=== PATIENT | female | born 1985 | race African-American/Black ===

== ENCOUNTER 2017-02-27 10:18 | Emergency (ER) | payer SELFPAY ==
[~2017-02-27] VITALS: Ht 162.6 cm; Wt 80.0 kg
[2017-02-27] MEDS ORDERED: RELAFEN 50500 MG/TAB PO (10:30)
[2017-02-27] MEDS ORDERED: TRILEPTAL 300M300 MG PO ×3 (10:31→14:59)
[2017-02-27] MEDS ORDERED: IRON325 M2 PO (10:31)
[2017-02-27] MEDS ORDERED: ZYPREXA20 MG PO (10:31)
[2017-02-27] MEDS ORDERED: COLACE 100100 MG/CAP PO (10:32)
[2017-02-27] MEDS ORDERED: ZYPREXA ZYD10 MG/TAB PO ×2 (11:55→14:59)
[2017-02-27 12:40] VITALS: BP 120/73; PULSE 103; TEMP 98.5
== END 2017-02-27 12:42 | disposition home or self-care (01) ==
LOC: COL.ER 10:18
DX: F31.9 Bipolar disorder, unspecified (principal); Z76.0 Encounter for issue of repeat prescription

== ENCOUNTER 2017-07-10 17:25 | Emergency (ER) | payer SELFPAY ==
[~2017-07-10] VITALS: Ht 170.2 cm; Wt 68.2 kg
[~2017-07-10 17:25] MED LIST: COLACE 100100 MG/CAP PO; IRON325 M2 PO; RELAFEN 50500 MG/TAB PO; TRILEPTAL 300M300 MG PO; ZYPREXA ZYD10 MG/TAB PO; ZYPREXA20 MG PO
[2017-07-10 17:29] VITALS: TEMP 98
[2017-07-10 17:43] LABS: COLLECTION METHOD CLEAN CATCH
[2017-07-10 17:49] LABS: PH 7 (5-8); SQUAMOUS EPITHELIAL 0-2 /hpf; URINE APPEARANCE Clear; URINE BACTERIA None Seen /hpf; URINE BILIRUBIN Negative (NEGATIVE); URINE BLOOD 3+ (NEGATIVE); URINE COLOR Straw; URINE GLUCOSE Negative (NEGATIVE); URINE KETONE Negative (NEGATIVE); URINE LEUKOCYTE ESTERASE Negative (NEGATIVE); URINE PROTEIN(semi-quant) Negative (NEGATIVE); URINE UROBILINOGEN Negative (NEGATIVE); URINE WBC 0-2 /hpf
[2017-07-10 17:51] LABS: BASO % 0.2 % (0.0-2.0); EOS # 0.1 (0.0-0.7); EOS % 0.3 % (0-4.0); GRAN # 11.4 (1.4-6.5); GRAN % 78.9 % (42.2-75.2); HEMATOCRIT 33.6 % (37.0-47.0); HEMOGLOBIN 11.6 g/dl (12.5-16.0); LYMPH # 2.1 (1.2-3.4); LYMPH % 14.8 % (20.0-51.0); MEAN CELL VOLUME 81 fl (80.0-100.0); MEAN CORPUSCULAR HEMOGLOBIN 28 pg (27.0-31.0); MEAN CORPUSCULAR HGB CONC 35 g/dl (33.0-37.0); MEAN PLATELET VOLUME 8.5 fl (7.4-10.4); MONO # 0.8 (0.1-0.6); MONO % 5.5 % (1.7-9.3); PLATELET COUNT 403 K/mm3 (130-400); RED BLOOD COUNT 4.13 M/mm3 (4.10-5.30); WHITE BLOOD COUNT 14.5 K/mm3 (4.8-10.8)
[2017-07-10 17:56] LABS: AMPHETAMINE URINE NEGATIVE; BARBITURATES URINE NEGATIVE; BENZODIAZEPINES URINE NEGATIVE; BUPRENORPHINE URINE NEGATIVE; METHADONE URINE NEGATIVE; OPIATES URINE NEGATIVE; OXYCODONE URINE NEGATIVE; PHENCYCLIDINE URINE NEGATIVE; PROPOXYPHENE URINE NEGATIVE; THC CANNABINOIDS URINE NEGATIVE; TRICYCLIC ANTIDEPRESS URINE NEGATIVE
[2017-07-10 18:00] LABS: ALANINE AMINOTRANSFERASE 22 U/L (9-52); ALBUMIN 4.1 gm/dL (3.5-5.0); ALKALINE PHOSPHATASE 47 U/L (50-136); ANION GAP 8 mmol/L (7-16); BILIRUBIN,TOTAL 0.3 mg/dL (0.0-1.0); BLOOD UREA NITROGEN 5 mg/dL (7-17); CALCIUM 9.1 mg/dL (8.4-10.2); CARBON DIOXIDE 25 mmol/L (22-30); CHLORIDE 108 mmol/L (98-107); CREATININE, serum 0.64 mg/dL (0.52-1.25); GLUCOSE 81 mg/dL (74-106); POTASSIUM 3.7 mmol/L (3.4-5.0); SODIUM 141 mmol/L (137-145); TOTAL PROTEIN 7.4 gm/dL (6.4-8.2)
[2017-07-10 18:11] LABS: ACETAMINOPHEN < 10 ug/mL (10-30); ALCOHOL(ethanol),MEDICAL < 10 mg/dL
[2017-07-10 22:54] VITALS: BP 109/71; PULSE 65
== END 2017-07-10 23:07 ==
LOC: COL.ER 17:25
PROVIDERS: Family Medicine
DX: R45.851 Suicidal ideations (principal); F31.9 Bipolar disorder, unspecified; F20.9 Schizophrenia, unspecified

== ENCOUNTER 2018-02-01 18:27 | Emergency (ER) | payer MEDICAID ==
[~2018-02-01] VITALS: Ht 162.6 cm; Wt 84.1 kg
[2018-02-01 18:30] VITALS: TEMP 99
[2018-02-01 18:57] LABS: BASO % 0.2 % (0.0-2.0); EOS # 0.1 (0.0-0.7); GRAN # 10.2 (1.4-6.5); GRAN % 82.3 % (42.2-75.2); HEMOGLOBIN 12.2 g/dl (12.5-16.0); LYMPH # 1.5 (1.2-3.4); LYMPH % 12.2 % (20.0-51.0); MEAN CELL VOLUME 79 fl (80.0-100.0); MEAN CORPUSCULAR HEMOGLOBIN 27 pg (27.0-31.0); MEAN CORPUSCULAR HGB CONC 34 g/dl (33.0-37.0); MEAN PLATELET VOLUME 8.3 fl (7.4-10.4); MONO # 0.5 (0.1-0.6); MONO % 3.9 % (1.7-9.3); PLATELET COUNT 370 K/mm3 (130-400); RED BLOOD COUNT 4.51 M/mm3 (4.10-5.30); REDCELL DISTRIBUTION WIDTH-CV 16.4 % (11.5-14.5)
[2018-02-01 19:01] LABS: HEMATOCRIT 35.5 % (37.0-47.0)
[2018-02-01 19:06] LABS: ALANINE AMINOTRANSFERASE 20 U/L (9-52); ALBUMIN 3.9 gm/dL (3.5-5.0); ALKALINE PHOSPHATASE 75 U/L (50-136); ANION GAP 11 mmol/L (7-16); AST,SGOT 29 U/L (15-37); BILIRUBIN,TOTAL 0.7 mg/dL (0.0-1.0); BLOOD UREA NITROGEN 10 mg/dL (7-17); CALCIUM 9.1 mg/dL (8.4-10.2); CARBON DIOXIDE 24 mmol/L (22-30); CHLORIDE 102 mmol/L (98-107); GLUCOSE 104 mg/dL (74-106); POTASSIUM 3.2 mmol/L (3.4-5.0); SODIUM 138 mmol/L (137-145); TOTAL PROTEIN 7.7 gm/dL (6.4-8.2)
[2018-02-01 19:07] LABS: ACETAMINOPHEN < 10 ug/mL (10-30); ALCOHOL(ethanol),MEDICAL < 10 mg/dL; SALICYLATE < 1.0 mg/dL
[2018-02-01 19:41] LABS: COLLECTION METHOD CLEAN CATCH
[2018-02-01 19:50] LABS: PH 5 (5-8); SQUAMOUS EPITHELIAL 0-2 /hpf; URINE APPEARANCE Clear; URINE BACTERIA None Seen /hpf; URINE BILIRUBIN Negative (NEGATIVE); URINE BLOOD 1+ (NEGATIVE); URINE COLOR Yellow; URINE GLUCOSE Negative (NEGATIVE); URINE KETONE Negative (NEGATIVE); URINE LEUKOCYTE ESTERASE Trace (NEGATIVE); URINE NITRATE Negative (NEGATIVE); URINE PROTEIN(semi-quant) Negative (NEGATIVE); URINE RBC 0-2 /hpf; URINE UROBILINOGEN Negative (NEGATIVE)
[2018-02-01 19:58] LABS: TRICYCLIC ANTIDEPRESS URINE NEGATIVE
[2018-02-01] MEDS ORDERED: RISPERDAL 1M1 MG/TAB PO (21:08)
[2018-02-01] MEDS ORDERED: DESYREL 50MG50 MG PO (21:09)
[2018-02-01] MEDS ORDERED: CIPRO 500MG TA500 MG PO (22:29)
[2018-02-01 22:35] VITALS: BP 116/73; PULSE 94
== END 2018-02-01 22:35 | disposition home or self-care (01) ==
LOC: COL.ER 18:27
PROVIDERS: Emergency Medicine
DX: F32.9 Major depressive disorder, single episode, unspecified (principal); R45.851 Suicidal ideations; N39.0 Urinary tract infection, site not specified; F17.210 Nicotine dependence, cigarettes, uncomplicated; Z98.890 Other specified postprocedural states
CPT/HCPCS: J7030

== ENCOUNTER → 2018-04-16 | Outpatient (CLI) | payer MEDICAID ==
[~2018-04-16] MED LIST changes: +CIPRO 500MG TA500 MG PO; +DESYREL 50MG50 MG PO; +RISPERDAL 1M1 MG/TAB PO
[2018-04-16 12:59] LABS: BASO % 0.2 % (0.0-2.0); EOS # 0.3 (0.0-0.7); EOS % 2.3 % (0-4.0); GRAN # 9.1 (1.4-6.5); HEMOGLOBIN 12.9 g/dl (12.5-16.0); LYMPH # 2.5 (1.2-3.4); MEAN CELL VOLUME 80 fl (80.0-100.0); MEAN CORPUSCULAR HEMOGLOBIN 28 pg (27.0-31.0); MEAN CORPUSCULAR HGB CONC 35 g/dl (33.0-37.0); MEAN PLATELET VOLUME 8.4 fl (7.4-10.4); MONO # 0.5 (0.1-0.6); MONO % 4.2 % (1.7-9.3); PLATELET COUNT 421 K/mm3 (130-400); RED BLOOD COUNT 4.64 M/mm3 (4.10-5.30); REDCELL DISTRIBUTION WIDTH-CV 16.1 % (11.5-14.5)
[2018-04-16 13:18] LABS: ALBUMIN 3.9 gm/dL (3.5-5.0); BILIRUBIN,TOTAL 0.5 mg/dL (0.0-1.0); CALCIUM 9.2 mg/dL (8.4-10.2); CHOLESTEROL RISK RATIO 2.9; CREATININE, serum 0.69 mg/dL (0.52-1.25); POTASSIUM 3.8 mmol/L (3.4-5.0); TOTAL PROTEIN 7.6 gm/dL (6.4-8.2)
[2018-04-16 13:47] LABS: TSH w REFLEX 0.551 uIU/mL (0.465-4.680)
== END ==
LOC: COL.RAD 12:18
PROVIDERS: Registered Nurse
DX: Z13.228 Encounter for screening for other metabolic disorders (principal); R06.2 Wheezing; R06.02 Shortness of breath; R60.0 Localized edema; F17.210 Nicotine dependence, cigarettes, uncomplicated

== ENCOUNTER 2019-06-21 18:41 | Emergency (ER) | payer MEDICARE ==
[~2019-06-21] VITALS: Ht 162.6 cm; Wt 90.9 kg
[2019-06-21 18:54] VITALS: TEMP 98.2
[2019-06-21 19:36] LABS: COLLECTION METHOD CLEAN CATCH
[2019-06-21 19:38] LABS: BASO % 0.2 % (0.0-2.0); EOS # 0.3 (0.0-0.7); EOS % 1.4 % (0-4.0); GRAN # 14.8 (1.4-6.5); GRAN % 78.1 % (42.2-75.2); HEMOGLOBIN 11.6 g/dl (12.5-16.0); LYMPH # 2.8 (1.2-3.4); LYMPH % 14.9 % (20.0-51.0); MEAN CELL VOLUME 80 fl (80.0-100.0); MEAN CORPUSCULAR HEMOGLOBIN 27 pg (27.0-31.0); MEAN CORPUSCULAR HGB CONC 33 g/dl (33.0-37.0); MEAN PLATELET VOLUME 8.3 fl (7.4-10.4); MONO # 0.9 (0.1-0.6); MONO % 4.9 % (1.7-9.3); PLATELET COUNT 474 K/mm3 (130-400); RED BLOOD COUNT 4.34 M/mm3 (4.10-5.30); REDCELL DISTRIBUTION WIDTH-CV 16.7 % (11.5-14.5)
[2019-06-21 19:39] LABS: HEMATOCRIT 34.9 % (37.0-47.0)
[2019-06-21 19:43] LABS: MUCOUS Present /lpf; PH 6 (5-8); SQUAMOUS EPITHELIAL 0-2 /hpf; URINE APPEARANCE Clear; URINE BACTERIA None Seen /hpf; URINE BILIRUBIN Negative (NEGATIVE); URINE BLOOD 1+ (NEGATIVE); URINE COLOR Yellow; URINE GLUCOSE Negative (NEGATIVE); URINE KETONE Negative (NEGATIVE); URINE LEUKOCYTE ESTERASE Trace (NEGATIVE); URINE NITRATE Negative (NEGATIVE); URINE PROTEIN(semi-quant) Negative (NEGATIVE); URINE UROBILINOGEN Negative (NEGATIVE)
[2019-06-21 19:58] LABS: ALBUMIN 3.6 gm/dL (3.5-5.0); BILIRUBIN,TOTAL 0.3 mg/dL (0.0-1.0); CALCIUM 8.9 mg/dL (8.4-10.2); CREATININE, serum 0.55 (0.52-1.25); POTASSIUM 3.4 mmol/L (3.4-5.0); TOTAL PROTEIN 6.9 gm/dL (6.4-8.2)
[2019-06-21] MEDS ORDERED: ZOFRAN ODT4 MG PO (21:32)
[2019-06-21] MEDS ORDERED: NORCO 325 MG-51 TAB PO (21:32)
[2019-06-21] MEDS ORDERED: FLAGYL500 MG PO (21:38)
[2019-06-21] MEDS ORDERED: CIPRO 500MG TA500 MG PO (21:38)
[2019-06-21 21:53] VITALS: BP 104/68; PULSE 75
== END 2019-06-21 21:59 | disposition home or self-care (01) ==
LOC: COL.ER 18:41
PROVIDERS: Emergency Medicine; Physician Assistant
DX: K52.9 Noninfective gastroenteritis and colitis, unspecified (principal)
CPT/HCPCS: J1170; J1885; J2405; J7030; Q9967

== ENCOUNTER 2019-12-20 12:01 | Emergency (ER) | payer MEDICARE ==
[~2019-12-20] VITALS: Ht 162.6 cm; Wt 101.4 kg
[~2019-12-20 12:01] MED LIST changes: +FLAGYL500 MG PO; +NORCO 325 MG-51 TAB PO; +ZOFRAN ODT4 MG PO
[2019-12-20 12:07] VITALS: TEMP 97.8
[2019-12-20] MEDS ORDERED: CEPHALEXIN500 M1 PO (12:34)
[2019-12-20] MEDS ORDERED: DOXYCYCLINE 10100 MG PO (12:34)
[2019-12-20 12:52] VITALS: BP 126/73; PULSE 79
== END 2019-12-20 12:53 | disposition home or self-care (01) ==
LOC: COL.ER 12:01
DX: L05.91 Pilonidal cyst without abscess (principal)

== ENCOUNTER 2020-07-20 09:13 | Emergency (ER) | payer MEDICARE ==
[~2020-07-20] VITALS: Ht 165.1 cm; Wt 86.4 kg
[~2020-07-20 09:13] MED LIST changes: +CEPHALEXIN500 M1 PO; +DOXYCYCLINE 10100 MG PO
[2020-07-20 09:15] VITALS: TEMP 98.2
[2020-07-20 10:20] LABS: BASO # 0.1 (0.0-0.2); BASO % 0.2 % (0.0-2.0); EOS # 0.2 (0.0-0.7); EOS % 0.8 % (0-4.0); GRAN # 19.4 (1.4-6.5); GRAN % 86.9 % (42.2-75.2); HEMATOCRIT 41.5 % (37.0-47.0); HEMOGLOBIN 14.1 g/dl (12.5-16.0); LYMPH # 1.9 (1.2-3.4); LYMPH % 8.5 % (20.0-51.0); MEAN CELL VOLUME 82 fl (80.0-100.0); MEAN CORPUSCULAR HEMOGLOBIN 28 pg (27.0-31.0); MEAN CORPUSCULAR HGB CONC 34 g/dl (33.0-37.0); MEAN PLATELET VOLUME 9.7 fl (7.4-10.4); MONO # 0.7 (0.1-0.6); MONO % 3.2 % (1.7-9.3); PLATELET COUNT 564 K/mm3 (130-400); RED BLOOD COUNT 5.06 M/mm3 (4.10-5.30); REDCELL DISTRIBUTION WIDTH-CV 14.9 % (11.5-14.5)
[2020-07-20 10:41] LABS: ALANINE AMINOTRANSFERASE 29 U/L (4-34); ALBUMIN 4.8 gm/dL (3.5-5.0); ALKALINE PHOSPHATASE 78 U/L (50-136); ANION GAP 12 mmol/L (7-16); AST,SGOT 54 U/L (15-37); BILIRUBIN,TOTAL 0.7 mg/dL (0.0-1.0); BLOOD UREA NITROGEN 8 mg/dL (7-17); CALCIUM 9.6 mg/dL (8.4-10.2); CARBON DIOXIDE 24 mmol/L (22-30); CHLORIDE 106 mmol/L (98-107); CREATININE, serum 0.74 (0.52-1.25); GLUCOSE 180 mg/dL (74-106); SODIUM 142 mmol/L (137-145); TOTAL PROTEIN 9.1 gm/dL (6.4-8.2)
[2020-07-20 10:42] LABS: ACETAMINOPHEN < 10 ug/mL (10-30); ALCOHOL(ethanol),MEDICAL < 10 mg/dL; SALICYLATE < 1.0 mg/dL
[2020-07-20 10:56] LABS: C-REACTIVE PROTEIN 5.5 mg/dL (0.0-0.9); CREATINE KINASE 785 U/L (30-135)
[2020-07-20 11:11] LABS: COLLECTION METHOD CLEAN CATCH
[2020-07-20 11:40] LABS: MUCOUS Present /lpf; PH 6 (5-8); SQUAMOUS EPITHELIAL 0-2 /hpf; URINE APPEARANCE Hazy; URINE BACTERIA None Seen /hpf; URINE BILIRUBIN Negative (NEGATIVE); URINE BLOOD Negative (NEGATIVE); URINE COLOR Yellow; URINE GLUCOSE Negative (NEGATIVE); URINE KETONE 1+ (NEGATIVE); URINE LEUKOCYTE ESTERASE Negative (NEGATIVE); URINE NITRATE Negative (NEGATIVE); URINE PROTEIN(semi-quant) 2+ (NEGATIVE); URINE UROBILINOGEN Negative (NEGATIVE)
[2020-07-20 11:48] LABS: TRICYCLIC ANTIDEPRESS URINE NEGATIVE
[2020-07-20 19:10] VITALS: BP 139/91; PULSE 93
== END 2020-07-20 19:10 ==
LOC: COL.ER 09:13
PROVIDERS: Physician Assistant
DX: F23 Brief psychotic disorder (principal); F31.9 Bipolar disorder, unspecified; Z20.828 Contact with and (suspected) exposure to other viral communicable diseases
CPT/HCPCS: J7030

== ENCOUNTER 2020-10-04 15:40 | Emergency (ER) | payer MEDICARE ==
[~2020-10-04] VITALS: Ht 167.6 cm; Wt 81.8 kg
[2020-10-04 16:09] VITALS: TEMP 98
[2020-10-04 17:12] LABS: BASO % 0.2 % (0.0-2.0); EOS # 0.2 (0.0-0.7); EOS % 1.1 % (0-4.0); GRAN # 10.9 (1.4-6.5); GRAN % 71.4 % (42.2-75.2); HEMOGLOBIN 11.9 g/dl (12.5-16.0); LYMPH # 3.4 (1.2-3.4); LYMPH % 22.2 % (20.0-51.0); MEAN CELL VOLUME 83 fl (80.0-100.0); MEAN CORPUSCULAR HEMOGLOBIN 28 pg (27.0-31.0); MEAN CORPUSCULAR HGB CONC 34 g/dl (33.0-37.0); MEAN PLATELET VOLUME 8.6 fl (7.4-10.4); MONO # 0.7 (0.1-0.6); MONO % 4.8 % (1.7-9.3); PLATELET COUNT 551 K/mm3 (130-400)
[2020-10-04 17:13] LABS: HEMATOCRIT 35.5 % (37.0-47.0)
[2020-10-04 17:19] LABS: ALANINE AMINOTRANSFERASE 12 U/L (4-34); ALBUMIN 3.9 gm/dL (3.5-5.0); ALKALINE PHOSPHATASE 67 U/L (50-136); ANION GAP 7 mmol/L (7-16); AST,SGOT 39 U/L (15-37); BILIRUBIN,TOTAL 0.3 mg/dL (0.0-1.0); BLOOD UREA NITROGEN 6 mg/dL (7-17); CALCIUM 9.7 mg/dL (8.4-10.2); CARBON DIOXIDE 29 mmol/L (22-30); CHLORIDE 103 mmol/L (98-107); CREATININE, serum 0.62 (0.52-1.25); GLUCOSE 95 mg/dL (74-106); POTASSIUM 3.8 mmol/L (3.4-5.0); SODIUM 140 mmol/L (137-145); TOTAL PROTEIN 7.2 gm/dL (6.4-8.2)
[2020-10-04 17:29] LABS: ACETAMINOPHEN < 10 ug/mL (10-30); ALCOHOL(ethanol),MEDICAL < 10 mg/dL; SALICYLATE < 1.0 mg/dL
[2020-10-04 17:49] LABS: TSH w REFLEX 0.654 uIU/mL (0.465-4.680)
[2020-10-04 18:28] LABS: COLLECTION METHOD CLEAN CATCH
[2020-10-04 18:49] LABS: TRICYCLIC ANTIDEPRESS URINE NEGATIVE
[2020-10-04 18:54] LABS: MUCOUS Present /lpf; PH 6 (5-8); URINE APPEARANCE Hazy; URINE BACTERIA Rare /hpf; URINE BILIRUBIN Negative (NEGATIVE); URINE BLOOD Negative (NEGATIVE); URINE COLOR Yellow; URINE GLUCOSE Negative (NEGATIVE); URINE KETONE Negative (NEGATIVE); URINE LEUKOCYTE ESTERASE Negative (NEGATIVE); URINE NITRATE Negative (NEGATIVE); URINE PROTEIN(semi-quant) Negative (NEGATIVE); URINE UROBILINOGEN Negative (NEGATIVE)
[2020-10-04] MEDS ORDERED: RISPERDAL 1M1 MG/TAB PO (21:28)
[2020-10-04 21:44] VITALS: BP 111/83; PULSE 102
== END 2020-10-04 21:52 | disposition home or self-care (01) ==
LOC: COL.ER 15:40
PROVIDERS: Nurse Practitioner
DX: F31.10 Bipolar disorder, current episode manic without psychotic features, unspecified (principal); U07.1 COVID-19; R45.851 Suicidal ideations

== ENCOUNTER 2020-10-20 20:27 | Emergency (ER) | payer MEDICARE ==
[~2020-10-20] VITALS: Ht 167.6 cm; Wt 102.3 kg
[2020-10-20 20:57] LABS: BASO % 0.2 % (0.0-2.0); EOS # 0.2 (0.0-0.7); EOS % 1.5 % (0-4.0); GRAN # 10.2 (1.4-6.5); GRAN % 71.4 % (42.2-75.2); LYMPH # 3.1 (1.2-3.4); MEAN CELL VOLUME 82 fl (80.0-100.0); MEAN CORPUSCULAR HEMOGLOBIN 28 pg (27.0-31.0); MEAN CORPUSCULAR HGB CONC 34 g/dl (33.0-37.0); MEAN PLATELET VOLUME 8.3 fl (7.4-10.4); MONO # 0.7 (0.1-0.6); MONO % 4.6 % (1.7-9.3); PLATELET COUNT 563 K/mm3 (130-400); REDCELL DISTRIBUTION WIDTH-CV 15.9 % (11.5-14.5)
[2020-10-20 21:05] LABS: HEMATOCRIT 32.8 % (37.0-47.0)
[2020-10-20 21:07] LABS: ALANINE AMINOTRANSFERASE 9 U/L (4-34); ALBUMIN 3.8 gm/dL (3.5-5.0); ALKALINE PHOSPHATASE 71 U/L (50-136); ANION GAP 7 mmol/L (7-16); AST,SGOT 19 U/L (15-37); BILIRUBIN,TOTAL 0.3 mg/dL (0.0-1.0); BLOOD UREA NITROGEN 5 mg/dL (7-17); CARBON DIOXIDE 26 mmol/L (22-30); CHLORIDE 105 mmol/L (98-107); GLUCOSE 94 mg/dL (74-106); SODIUM 138 mmol/L (137-145); TOTAL PROTEIN 7.1 gm/dL (6.4-8.2)
[2020-10-20 21:08] LABS: ACETAMINOPHEN < 10 ug/mL (10-30); ALCOHOL(ethanol),MEDICAL < 10 mg/dL; SALICYLATE < 1.0 mg/dL
[2020-10-20 21:48] LABS: COLLECTION METHOD CLEAN CATCH
[2020-10-20 22:00] LABS: MUCOUS Present /lpf; PH 5 (5-8); URINE APPEARANCE Cloudy; URINE BACTERIA Rare /hpf; URINE BILIRUBIN Negative (NEGATIVE); URINE BLOOD 3+ (NEGATIVE); URINE COLOR Yellow; URINE GLUCOSE Negative (NEGATIVE); URINE KETONE Negative (NEGATIVE); URINE LEUKOCYTE ESTERASE 1+ (NEGATIVE); URINE NITRATE Negative (NEGATIVE); URINE PROTEIN(semi-quant) Negative (NEGATIVE); URINE UROBILINOGEN Negative (NEGATIVE)
[2020-10-20 22:04] LABS: TRICYCLIC ANTIDEPRESS URINE NEGATIVE
[2020-10-21 10:04] LABS: BASO % 0.2 % (0.0-2.0); EOS # 0.2 (0.0-0.7); EOS % 1.5 % (0-4.0); GRAN # 9.8 (1.4-6.5); GRAN % 73.5 % (42.2-75.2); HEMOGLOBIN 11.5 g/dl (12.5-16.0); LYMPH # 2.8 (1.2-3.4); LYMPH % 20.8 % (20.0-51.0); MEAN CELL VOLUME 83 fl (80.0-100.0); MEAN CORPUSCULAR HEMOGLOBIN 27 pg (27.0-31.0); MEAN CORPUSCULAR HGB CONC 33 g/dl (33.0-37.0); MEAN PLATELET VOLUME 8.1 fl (7.4-10.4); MONO # 0.5 (0.1-0.6); MONO % 3.7 % (1.7-9.3); PLATELET COUNT 599 K/mm3 (130-400); RED BLOOD COUNT 4.25 M/mm3 (4.10-5.30)
[2020-10-21 10:05] LABS: HEMATOCRIT 35.4 % (37.0-47.0)
[2020-10-21 10:14] LABS: CREATININE, serum 0.61 (0.52-1.25); POTASSIUM 3.8 mmol/L (3.4-5.0)
[2020-10-21 16:05] VITALS: BP 115/74; PULSE 81; TEMP 97.8
== END 2020-10-21 16:05 | disposition disaster alternative care site (69) ==
LOC: COL.ER 20:27
PROVIDERS: Emergency Medicine; Family Medicine
DX: T45.0X2A Poisoning by antiallergic and antiemetic drugs, intentional self-harm, initial encounter (principal); F31.9 Bipolar disorder, unspecified; F20.9 Schizophrenia, unspecified; F17.210 Nicotine dependence, cigarettes, uncomplicated; Z20.822 Contact with and (suspected) exposure to COVID-19
CPT/HCPCS: J7030

== ENCOUNTER → 2020-11-14 | Outpatient (CLI) | payer MEDICARE, OTHER ==
[~2020-11-14] MED LIST changes: +TYLENOL 325MG325 MG PO
[2020-11-15 19:18] LABS: ALBUMIN 3.7 gm/dL (3.5-5.0); BILIRUBIN,TOTAL 0.2 mg/dL (0.0-1.0); CALCIUM 8.6 mg/dL (8.4-10.2); CHOLESTEROL RISK RATIO 2.9; CREATININE, serum 0.61 (0.52-1.25); POTASSIUM 3.8 mmol/L (3.4-5.0); THYROID STIMULATING HORMONE 1.26 uIU/mL (0.465-4.680); TOTAL PROTEIN 6.8 gm/dL (6.4-8.2)
[2020-11-15 23:20] LABS: BASO % 1.2 % (0.0-2.0); EOS # 0.3 (0.0-0.7); EOS % 2.5 % (0-4.0); GRAN # 9.6 (1.4-6.5); GRAN % 70.8 % (42.2-75.2); HEMATOCRIT 32.9 % (37.0-47.0); LYMPH # 2.8 (1.2-3.4); LYMPH % 20.5 % (20.0-51.0); MEAN CELL VOLUME 82 fl (80.0-100.0); MEAN CORPUSCULAR HEMOGLOBIN 27 pg (27.0-31.0); MEAN CORPUSCULAR HGB CONC 33 g/dl (33.0-37.0); MEAN PLATELET VOLUME 8.6 fl (7.4-10.4); MONO # 0.8 (0.1-0.6); MONO % 5.7 % (1.7-9.3); PLATELET COUNT 627 K/mm3 (130-400); RED BLOOD COUNT 4.03 M/mm3 (4.10-5.30); REDCELL DISTRIBUTION WIDTH-CV 16.1 % (11.5-14.5)
== END ==
LOC: COL.LAB 17:31
DX: F33.3 Major depressive disorder, recurrent, severe with psychotic symptoms (principal); Z79.899 Other long term (current) drug therapy

== ENCOUNTER 2020-12-18 07:12 | Emergency (ER) | payer MEDICARE ==
[~2020-12-18] VITALS: Ht 162.6 cm; Wt 100.0 kg
[~2020-12-18 07:12] MED LIST changes: -TYLENOL 325MG325 MG PO
[2020-12-18 07:18] VITALS: TEMP 97.1
[2020-12-18 08:27] VITALS: BP 127/68; PULSE 76
== END 2020-12-18 08:27 | disposition home or self-care (01) ==
LOC: COL.ER 07:12
DX: J06.9 Acute upper respiratory infection, unspecified (principal); Z20.822 Contact with and (suspected) exposure to COVID-19

== ENCOUNTER 2021-07-11 00:19 | Emergency (ER) | payer MEDICARE ==
[2021-07-11] MEDS ORDERED: TYLENOL 325MG325 MG PO (06:17)
== END 2021-07-11 00:42 | disposition left against medical advice (07) ==
LOC: COL.ER 00:19
DX: R69 Illness, unspecified (principal)

== ENCOUNTER 2021-07-11 04:51 | Emergency (ER) | payer MEDICARE ==
[~2021-07-11] VITALS: Ht 162.6 cm; Wt 114.1 kg
[2021-07-11 04:57] VITALS: TEMP 98.7
[2021-07-11] MEDS ORDERED: TYLENOL 325MG325 MG PO (06:17)
[2021-07-11 06:26] VITALS: BP 112/91; PULSE 79
== END 2021-07-11 06:28 | disposition home or self-care (01) ==
LOC: COL.ER 04:51
DX: O99.612 Diseases of the digestive system complicating pregnancy, second trimester (principal); K42.9 Umbilical hernia without obstruction or gangrene; Z3A.26 26 weeks gestation of pregnancy

== ENCOUNTER 2021-07-18 17:41 | Emergency (ER) | payer MEDICARE ==
[~2021-07-18 17:41] MED LIST changes: +TYLENOL 325MG325 MG PO
== END 2021-07-18 18:23 | disposition left against medical advice (07) ==
LOC: COL.ER 17:41
DX: T14.8XXA Other injury of unspecified body region, initial encounter (principal)

== ENCOUNTER → 2021-09-02 | Outpatient (CLI) | payer MEDICARE | LOC: DIA.ED 09:28 | DX: O24.419 Gestational diabetes mellitus in pregnancy, unspecified control (principal) | CPT/HCPCS: G0108 ==

== ENCOUNTER 2021-10-15 08:30 | Inpatient (IN) | payer MEDICARE, MEDICAID ==
[~2021-10-15] VITALS: Ht 165.2 cm; Wt 114.5 kg
[2021-10-16] VITALS (16 sets, daily range): BP systolic 76–116; BP diastolic 39–79; PULSE 62–83; TEMP 97.7
[2021-10-16] MEDS ORDERED: VRAYLAR1.5 MG PO (12:47)
[2021-10-16] MEDS ORDERED: PRENATAL TABLET PO (12:48)
[2021-10-16] MEDS ORDERED: OSCAL 500 TAB500 MG PO (12:49)
[2021-10-16 14:13] LABS: BASO % 0.2 % (0.0-2.0); EOS # 0.2 K/mm3 (0.0-0.7); EOS % 1.3 % (0.0-4.0); GRAN # 10.7 K/mm3 (1.4-6.5); GRAN % 74.5 % (42.2-75.2); LYMPH # 2.6 K/mm3 (1.2-3.4); LYMPH % 17.7 % (20.0-51.0); MEAN CELL VOLUME 83 fl (80.0-100.0); MEAN CORPUSCULAR HGB CONC 35 g/dl (33.0-37.0); MEAN PLATELET VOLUME 9.1 fl (7.4-10.4); MONO # 0.8 K/mm3 (0.1-0.6); MONO % 5.6 % (1.7-9.3); PLATELET COUNT 498 K/mm3 (130-400); RED BLOOD COUNT 3.24 M/mm3 (4.10-5.30); REDCELL DISTRIBUTION WIDTH-CV 14.4 % (11.5-14.5)
[2021-10-16 14:15] LABS: HEMATOCRIT 26.8 % (37.0-47.0); HEMOGLOBIN 9.4 g/dl (12.5-16.0); MEAN CORPUSCULAR HEMOGLOBIN 29 pg (27-31)
--- NOTE | 2021-10-16 16:15 | NUR ---
1615-Assumed care of patient. Mons pubis trimmed with clippers and abdomen cleansed per protocol. 1625-Ambulatory to OR.
[2021-10-17 01:00] VITALS: BP 123/71; PULSE 68; TEMP 97.4
[2021-10-17 04:55] VITALS: BP 121/72; PULSE 72; TEMP 97.9
[2021-10-17 07:10] LABS: HEMATOCRIT 27.1 % (37.0-47.0); HEMOGLOBIN 9.5 g/dl (12.5-16.0)
[2021-10-17 07:36] VITALS: BP 120/73; PULSE 60; TEMP 97.4
--- NOTE | 2021-10-17 10:20 | NUR ---
Initial visit; Parents thanked [employer] Telephone Clerk for offering congratulations and God's blessings for the of their daughter. [employer] Telephone Clerk thanked family for choosing [facility].
[2021-10-17 11:12] VITALS: BP 118/70; PULSE 64; TEMP 98.2
[2021-10-17 16:21] VITALS: BP 128/89; PULSE 81; TEMP 97.8
[2021-10-17 20:00] VITALS: BP 130/83; PULSE 60; TEMP 97.9
[2021-10-18 08:14] VITALS: BP 133/69; PULSE 82; TEMP 97.4
[2021-10-18] MEDS ORDERED: IBU800 M1 PO (08:37)
[2021-10-18] MEDS ORDERED: PERCOCET 325 MG1 TA3 PO (08:37)
== END 2021-10-18 12:37 | disposition home or self-care (01) | DRG 788 ==
LOC: OB 10-16 08:30
PROVIDERS: ADMIT Obstetrics & Gynecology
PROC: 10D00Z1 Extraction of Products of Conception, Low, Open Approach (ICD-10-PCS; principal; 2021-10-16)
DX: O34.211 Maternal care for low transverse scar from previous cesarean delivery (principal); Z37.0 Single live birth; O24.420 Gestational diabetes mellitus in childbirth, diet controlled; O34.13 Maternal care for benign tumor of corpus uteri, third trimester; D25.9 Leiomyoma of uterus, unspecified; O99.62 Diseases of the digestive system complicating childbirth; K42.9 Umbilical hernia without obstruction or gangrene; O99.214 Obesity complicating childbirth; E66.01 Morbid (severe) obesity due to excess calories; O99.344 Other mental disorders complicating childbirth; F31.9 Bipolar disorder, unspecified; Z3A.39 39 weeks gestation of pregnancy
CPT/HCPCS: J0171; J0690; J1885; J2370; J2405; J2590; J2704; J7120

== ENCOUNTER 2021-12-05 10:00 | Day surgery (SDC) | payer MEDICARE, MEDICAID ==
[~2021-12-05] VITALS: Ht 165.1 cm; Wt 102.6 kg
[2021-12-05] VITALS (10 sets, daily range): BP systolic 113–143; BP diastolic 59–81; PULSE 55–67; TEMP 97.2–98.2
[~2021-12-05 10:00] MED LIST changes: +IBU800 M1 PO; +OSCAL 500 TAB500 MG PO; +PERCOCET 325 MG1 TA3 PO; +PRENATAL TABLET PO; +VRAYLAR1.5 MG PO
[2021-12-05] MEDS ORDERED: OSCAL 500 TAB500 MG PO (11:41)
[2021-12-05] MEDS ORDERED: FERROUS SU325 MG/TAB PO (11:41)
[2021-12-05] MEDS ORDERED: NORCO 325 MG-51 TAB PO (13:08)
[2021-12-05] MEDS ORDERED: MOTRIN 600600 MG/TAB PO (13:08)
--- NOTE | 2021-12-05 16:55 | NUR ---
PT ARRIVES TO ROOM FROM PACU @ 1620. PT IS ORIENTED X3, STATES THAT SHE NEEDS TO USE BR. PT DENIES NAUSEA, RATES ABDOMINAL PAIN 4/10. PT IS ASSISTED WITH 2 ASSIST ET GAITBELT TO BR, IS DIZZY @ FIRST THEN AMBULATES SLOWLY, IS SBA AFTER THAT. PT IS UNABLE TO URINATE MORE THAN A FEW DROPS. PT'S ARRIVES IN ROOM. PT IS ORIENTED TO FALL PRECAUTIONS ET CALL LIGHT, VERBALIZES UNDERSTANDING.
[2021-12-06 00:39] VITALS: BP 120/68; PULSE 66; TEMP 98.3
--- NOTE | 2021-12-06 00:42 | NUR ---
Received report from day shift. Patient alert and oriented. Assessment performed. Lungs CTA, bowel sounds present. Patient denies any pain at this time. IV INT after patient tolerated dinner with no issues. PM meds provided. Patient resting in bed with call light near.
[2021-12-06 04:47] VITALS: BP 142/81; PULSE 58; TEMP 98.3
--- NOTE | 2021-12-06 06:14 | NUR ---
Patient has had an uneventful night. Patient reported pain 4/10 and requested Tylenol. Patient is resting in bed and has ambulated to the bathroom several times.
[2021-12-06 07:23] VITALS: BP 148/67; PULSE 53; TEMP 98.3
--- NOTE | 2021-12-06 08:42 | NUR ---
PT IS SEEN CHANGING OWN UNDERGARMENTS WHEN THIS NURSE ENTERS ROOM. PT IS REQUESTING PAIN MEDICATION, GRIMACES ET GROANS WITH MOVEMENT. NORCO ADMINISTERED. PT HAS BEEN UP INDEPENDENTLY TO BR, AMBULATES EASILY. HAS STAYED @ BEDSIDE DURING NIGHT. PT DENIES OTHER NEEDS, CALL LIGHT WITHIN REACH.
--- NOTE | 2021-12-06 09:21 | NUR ---
Initial visit attempt; Patient sleeping, Livestock Speculator left card letting her know of the availability of spiritual care at our hospital.
--- NOTE | 2021-12-06 10:01 | NUR ---
CUBA met with the patient to discuss discharge plan. The patien lives in [place] with three of her five children. She reports independence with ADLs and does not have any DME. The patient's primary care provider is Mckenzie Becerra at [facility] and she receives her medications from [facility]. She reports occasional difficulties affording her meds. CUBA informed her how the [facility] has a pharmacy that can offer discounted meds. The patient verbalized understanding. The patient does not have a DPOA-HC and she was not interested in completing one at this time. She states that she is not and has five children. One is [id number], Rell. The others are 16, 13, 11, and 7 weeks old. CUBA informed her how Rell would be her legal next of kin. The patient verbalized understanding. The patient's mother, Corina Oropeza (ph#[phone]), is listed as her emergency contact. The patient plans on returning home with her family upon discharge. No additional needs at this time. *Discharge plan: home with family*
--- NOTE | 2021-12-06 10:28 | NUR ---
PT IS PLEASANT ET COOPERATIVE. DISCHARGE EDUCATION ET INSTRUCTIONS, PT DEMONSTRATES UNDERSTANDING. PT'S QUESTIONS ANSWERED REGARDING ACTIVITY RESTRICTIONS. PERIPHERAL IV DCED FROM PT'S LEFT WRIST, CATHTER TIP INTACT. PT IS CURRENTLY WAITING ON HER TO BRING HER A SHIRT TO GO HOME IN.
--- NOTE | 2021-12-06 10:40 | NUR ---
PT ESCORTED OUT OF BUILDING VIA WC PUSHED BY IAN MILLER WITH ACCOMPANYING.
== END 2021-12-06 10:35 | disposition home or self-care (01) ==
LOC: SDCO 10:00 → SURG 16:20 → SDCO 12-06 10:35
DX: K43.6 Other and unspecified ventral hernia with obstruction, without gangrene (principal); E66.9 Obesity, unspecified; Z68.39 Body mass index [BMI] 39.0-39.9, adult
CPT/HCPCS: OP; A9284; C1781; J0690; J1100; J1170; J1885; J2250; J2405; J2704; J3010; J7120

== ENCOUNTER 2022-05-06 13:18 | Emergency (ER) | payer MEDICARE, MEDICAID ==
[~2022-05-06 13:18] MED LIST changes: +FERROUS SU325 MG/TAB PO; +MOTRIN 600600 MG/TAB PO
== END 2022-05-06 13:30 | disposition left against medical advice (07) ==
LOC: COL.ER 13:18
DX: R53.81 Other malaise (principal)

== ENCOUNTER 2022-05-07 16:09 | Emergency (ER) | payer MEDICARE, MEDICAID ==
[~2022-05-07] VITALS: Ht 162.6 cm; Wt 98.6 kg
[2022-05-07 16:34] VITALS: BP 133/78; PULSE 103; TEMP 97.4
== END 2022-05-07 16:50 | disposition left against medical advice (07) ==
LOC: COL.ER 16:09
DX: R06.02 Shortness of breath (principal); M79.672 Pain in left foot; Z86.16 Personal history of COVID-19

== ENCOUNTER 2022-05-17 09:57 | Emergency (ER) | payer MEDICARE, MEDICAID ==
[~2022-05-17] VITALS: Ht 165.1 cm; Wt 93.2 kg
[2022-05-17 10:16] VITALS: BP 139/85; PULSE 74; TEMP 98.1
[2022-05-17 10:58] LABS: COLLECTION METHOD CLEAN CATCH
[2022-05-17 12:01] LABS: MUCOUS Present (NOT PRESENT); URINE BACTERIA None Seen /hpf (NONE SEEN); URINE RBC 0-2 /hpf (0-2)
[2022-05-17 12:15] LABS: PH 6.5 (5.0-8.5); URINE APPEARANCE Clear (CLEAR/HAZY); URINE COLOR Yellow (YELLOW)
[2022-05-17 12:16] LABS: URINE BLOOD Negative (NEGATIVE); URINE GLUCOSE Negative (NEGATIVE); URINE KETONE Negative (NEGATIVE); URINE NITRATE Negative (NEGATIVE); URINE PROTEIN(semi-quant) Negative (NEGATIVE); URINE UROBILINOGEN 0.2 E.U/dL (0.2-1.0)
== END 2022-05-17 11:50 | disposition home or self-care (01) ==
LOC: COL.ER 09:57
PROVIDERS: Nurse Practitioner
DX: M79.601 Pain in right arm (principal); F17.200 Nicotine dependence, unspecified, uncomplicated; Z28.310 Unvaccinated for COVID-19

== ENCOUNTER 2022-08-03 08:02 | Emergency (ER) | payer MEDICARE ==
[~2022-08-03] VITALS: Ht 165.1 cm; Wt 84.5 kg
[2022-08-03 08:11] VITALS: TEMP 97.7
[2022-08-03 09:07] LABS: BASO % 0.3 % (0.0-2.0); EOS # 0.2 K/mm3 (0.0-0.7); EOS % 2.9 % (0.0-4.0); GRAN # 5.2 K/mm3 (1.4-6.5); GRAN % 68.7 % (42.2-75.2); HEMOGLOBIN 10.8 g/dl (12.5-16.0); LYMPH # 1.8 K/mm3 (1.2-3.4); LYMPH % 23.3 % (20.0-51.0); MEAN CELL VOLUME 79 fl (80.0-100.0); MEAN CORPUSCULAR HEMOGLOBIN 27 pg (27-31); MEAN CORPUSCULAR HGB CONC 34 g/dl (33.0-37.0); MEAN PLATELET VOLUME 8.5 fl (7.4-10.4); MONO # 0.3 K/mm3 (0.1-0.6); MONO % 4.5 % (1.7-9.3); PLATELET COUNT 568 K/mm3 (130-400); REDCELL DISTRIBUTION WIDTH-CV 14.8 % (11.5-14.5)
[2022-08-03 09:08] LABS: HEMATOCRIT 31.7 % (37.0-47.0)
[2022-08-03 09:09] LABS: INR 1.2 (0.8-3.0); PROTHROMBIN TIME 13.5 SECONDS (9.7-12.8)
[2022-08-03 09:11] LABS: PARTIAL THROMBOPLASTIN TIME 36.3 SECONDS (26.0-37.0)
[2022-08-03 09:23] LABS: ALANINE AMINOTRANSFERASE 21 U/L (0-55); ALBUMIN 3.5 gm/dL (3.5-5.0); ALKALINE PHOSPHATASE 69 U/L (40-150); ANION GAP 8 mmol/L (7-16); AST,SGOT 18 U/L (5-34); BILIRUBIN,TOTAL 0.5 mg/dL (0.2-1.2); BLOOD UREA NITROGEN 5 mg/dL (7-19); CALCIUM 8.7 mg/dL (8.4-10.2); CARBON DIOXIDE 23 mmol/L (22-29); CHLORIDE 111 mmol/L (98-107); CREATININE, serum 0.64 mg/dL (0.57-1.11); GLUCOSE 92 mg/dL (70-99); POTASSIUM 3.6 mmol/L (3.5-4.5); SODIUM 142 mmol/L (136-145); TOTAL PROTEIN 6.7 gm/dL (6.2-8.1)
[2022-08-03 09:33] LABS: TROPONIN-I < 0.010 ng/mL (0.00-0.033)
[2022-08-03 10:12] VITALS: BP 123/77; PULSE 76
[2022-08-06] MEDS ORDERED: SEROQUEL50 MG PO ×2 (10:12→10:16)
== END 2022-08-03 10:13 | disposition home or self-care (01) ==
LOC: COL.ER 08:02
PROVIDERS: Family Medicine
DX: R07.2 Precordial pain (principal)

== ENCOUNTER 2022-11-21 14:24 | Emergency (ER) | payer SELFPAY ==
[~2022-11-21] VITALS: Ht 165.1 cm; Wt 81.8 kg
[~2022-11-21 14:24] MED LIST changes: +SEROQUEL50 MG PO
[2022-11-21 14:33] VITALS: BP 119/72; PULSE 89; TEMP 98.3
[2022-11-21 15:25] LABS: BASO % 0.2 % (0.0-2.0); EOS # 0.3 K/mm3 (0.0-0.7); EOS % 1.9 % (0.0-4.0); GRAN # 11.9 K/mm3 (1.4-6.5); HEMOGLOBIN 11.5 g/dl (12.5-16.0); LYMPH # 3.1 K/mm3 (1.2-3.4); LYMPH % 18.8 % (20.0-51.0); MEAN CELL VOLUME 80 fl (80.0-100.0); MEAN CORPUSCULAR HEMOGLOBIN 27 pg (27-31); MEAN CORPUSCULAR HGB CONC 34 g/dl (33.0-37.0); MONO # 1.1 K/mm3 (0.1-0.6); MONO % 6.7 % (1.7-9.3); PLATELET COUNT 549 K/mm3 (130-400); RED BLOOD COUNT 4.27 M/mm3 (4.10-5.30); REDCELL DISTRIBUTION WIDTH-CV 16.3 % (11.5-14.5)
[2022-11-21 15:34] LABS: ALANINE AMINOTRANSFERASE 45 U/L (0-55); ALBUMIN 3.7 gm/dL (3.5-5.0); ALKALINE PHOSPHATASE 73 U/L (40-150); ANION GAP 10 mmol/L (7-16); AST,SGOT 66 U/L (5-34); BILIRUBIN,TOTAL 0.5 mg/dL (0.2-1.2); BLOOD UREA NITROGEN 5 mg/dL (7-19); CALCIUM 9.5 mg/dL (8.4-10.2); CARBON DIOXIDE 24 mmol/L (22-29); CHLORIDE 107 mmol/L (98-107); CREATININE, serum 0.71 mg/dL (0.57-1.11); GLUCOSE 82 mg/dL (70-99); POTASSIUM 3.4 mmol/L (3.5-4.5); SODIUM 141 mmol/L (136-145); TOTAL PROTEIN 7.3 gm/dL (6.2-8.1)
[2022-11-21 15:35] LABS: ACETAMINOPHEN < 1.0 ug/mL (10-30); ALCOHOL(ethanol),MEDICAL < 10 mg/dL (0-10); SALICYLATE < 5.0 mg/dL (15.0-30.0)
[2022-11-21 16:08] LABS: COLLECTION METHOD CLEAN CATCH
[2022-11-21 16:15] LABS: URINE APPEARANCE Cloudy (CLEAR/HAZY); URINE COLOR Red (YELLOW); URINE GLUCOSE Negative (NEGATIVE); URINE PROTEIN(semi-quant) 2+ (NEGATIVE)
[2022-11-21 16:16] LABS: URINE BLOOD 3+ (NEGATIVE); URINE KETONE Negative (NEGATIVE); URINE NITRATE Negative (NEGATIVE); URINE UROBILINOGEN 0.2 E.U/dL (0.2-1.0)
[2022-11-21 16:26] LABS: TRICYCLIC ANTIDEPRESS URINE NEGATIVE
[2022-11-21 16:34] LABS: MUCOUS Present (NOT PRESENT); URINE BACTERIA None Seen /hpf (NONE SEEN); URINE RBC >50 /hpf (0-2)
== END 2022-11-21 19:35 | disposition home or self-care (01) ==
LOC: COL.ER
PROVIDERS: Emergency Medicine Emergency Medical Services
DX: F31.9 Bipolar disorder, unspecified (principal); D72.829 Elevated white blood cell count, unspecified; E87.6 Hypokalemia; D64.89 Other specified anemias; R74.01 Elevation of levels of liver transaminase levels; Z28.310 Unvaccinated for COVID-19

== ENCOUNTER → 2024-06-29 | Outpatient (CLI) | payer MEDICARE | LOC: COL.RAD 11:11 | DX: M17.0 Bilateral primary osteoarthritis of knee (principal) ==